=== PATIENT | male | born 1945 | race Caucasian/White ===

== ENCOUNTER → 2018-01-07 | Day surgery (SDC) | payer MEDICARE ==
[~2018-01-07] MED LIST: LIDOCAINE 1%/EPI 1:100,000 20 ML VIAL. INJ ONE; LIDOCAINE 1%/EPI 1:100,000 20 ML VIAL. ONE
--- NOTE | 2018-01-07 13:40 | PDOC4 ---
Operative Note Operative Note Date: 01/07/2018 Preoperative diagnosis: Mid back mass Postoperative diagnosis: Same Procedure: Excision of mass Surgeon: Jose Luis Specimen: Back mass Dictation: Patient is a 72-year-old gentleman is had a inflamed mass on his back is taken antibiotics for approximately 1 week and has improved comes in for excision of mass. The procedure was explained to the patient detail was benefits were also discussed including bleeding infection alternatives this procedure also discussed with patient seemed understanding gave both verbal and written consent to have the procedure performed. Patient was taken to the minor was room placed in a sitting position his back was prepped and draped usual sterile fashion using ChloraPrep area 1% lidocaine with epinephrine was used and anesthetized the area around the mass. Using 15 blade scalpel mass was excised with elliptical area of skin was carried down through the subcutaneous tissue using 15 blade scalpel to completely excise the mass and sent for pathology. Wound was closed in a single layer of horizontal mattress suture 3-0 nylon. Wound was then dressed with island dressing. Patient tolerated procedure well was discharged home in stable condition all sponge instrument needle counts listed as correct estimate blood loss 5 mL ORLANDO LEO MD Jan 07, 2018 13:40
--- NOTE | 2018-01-09 10:17 | PATHOLOGY ---
[facility] Accession Number: [id number] . 01 Material submitted: . CYST MID BACK . 01 Clinical history: . Cyst mid back . 02 Diagnosis: Skin and subcutaneous tissue, middle back excision: - Epidermal inclusion cyst, ruptured, with acute and chronic inflammation and focal foreign body giant cell reaction to keratinaceous material. - Cicatrix of skin. LBQ/01/08/2018 . 02 Comment: There is no evidence of malignancy. (JPM/db; 01/08/18) . 02 Electronically signed: . Luis Reagan MD, Pathologist NPI- [id number] . 01 Gross description: . The specimen is received in formalin, labeled "Juice Mello and cyst mid back", is an unoriented ellipse of jackson-white skin 2.3 x 0.7 cm excised to a depth of 0.6 cm. The underlying jackson-yellow soft tissue is indurated and has a disrupted, 0.7 x 0.4 x 0.4 cm cyst. The specimen is entirely submitted in A1. ([facility]; 01/07/2018) SHS/SHS . 02 Pathologist provided ICD-10: L72.0, L08.9 . 02 CPT . 015980 Performed at: 01 [facility] [address], [place], [place] [id number] MD Raul Watson MD Phone: [phone] Performed at: 02 [facility] [address] [place], [place] [id number] MD Luis Reagan MD Phone: [phone]
== END | disposition home or self-care (01) ==
LOC: SURG 13:01
PROVIDERS: ATTEND Surgery
DX: L72.0 Epidermal cyst (principal); L90.5 Scar conditions and fibrosis of skin
CPT/HCPCS: 11403; 88304; J3490